=== PATIENT | female | born 1935 | race Caucasian/White ===

== ENCOUNTER 2018-02-01 11:04 | Inpatient (IN) | payer MEDICARE, MEDICAID ==
[2018-02-01] MEDS ORDERED: Ketorolac 30 MG/ML SDV IM PRN (11:18)
[2018-02-01 12:16] LABS: CHLORIDE,CL 92 mmol/L (98-115); SODIUM,NA 130 mmol/L (136-145)
[2018-02-01] MEDS: Lidocaine 5% 700 MG Patch TOP SCH (12:52)
[2018-02-01] MEDS: Acetaminophen 325 MG Tab PO PRN (15:25)
[2018-02-01] MEDS: Ondansetron 4 MG Tab.DIS PO PRN (18:20)
[2018-02-02] MEDS: Acetaminophen 325 MG Tab PO PRN ×2 (01:13→06:50)
[2018-02-02 07:50] LABS: CHLORIDE,CL 93 mmol/L (98-115); SODIUM,NA 131 mmol/L (136-145)
[2018-02-02] MEDS: Levothyroxine 50 MCG Tab PO SCH (07:51)
[2018-02-02] MEDS: Lidocaine 5% 700 MG Patch TOP SCH (08:04)
[2018-02-02] MEDS ORDERED: amLODIPine 2.5 MG Tab PO SCH (09:00)
[2018-02-02] MEDS ORDERED: Acetaminophen/HYDROcodone 325-5 MG Tab PO PRN (11:04)
[2018-02-02] MEDS ORDERED: Potassium Chloride 20 MEQ Tab.ER PO ONE (11:30)
[2018-02-02] MEDS ORDERED: EPINEPHrine 1:10,000 1 MG/10 ML Syringe IVPUSH PRN (12:19)
[2018-02-02] MEDS ORDERED: Nitroglycerin 0.4 MG Tab.SL SL PRN (12:19)
[2018-02-02] MEDS ORDERED: Atropine 0.1 MG/ML 10 ML Syringe IVPUSH PRN (12:19)
[2018-02-02] MEDS ORDERED: Lidocaine 2% 100 MG/5 ML Syringe IVPUSH PRN (12:19)
[2018-02-02] MEDS ORDERED: Ketorolac 30 MG/ML SDV IVPUSH PRN (17:18)
--- NOTE | 2018-02-02 19:02 | PCM.PN ---
- General Info Date of Service: 02/02/18 Subjective Update: Since admission, patient reports only concern is regarding R sided chest wall pain, which is improved with medications she has been given. Has been using incentive spirometer. Nausea and vomiting hav resolved. She has no other complaints. She specifically denies any headache, vision changes, hearing changes, difficulty swallowing, chest pain other than overlying right lateral chest wall, cough, shortness of breath, abdominal pain, abdominal pain, extremity pain, numbness, weakness, tingling, vertigo, lightheadedness, dysequilibrium. Her daughter at bedside would like to taker her home. The daughter states that she was "completely out of it" 2 nights ago when she fell. The patient is unable to provide history of time around event and doesn't know what happened to cause her to fall. No nursing concerns. Neurological checks have continued to be normal. - Patient Data Vitals - Most Recent: Last Vital Signs Temp 37.8 C 02/02/18 18:45 Pulse 78 02/02/18 18:45 Resp 16 02/02/18 18:45 BP 132/64 02/02/18 18:45 Pulse Ox 91 L 02/02/18 18:45 Weight - Most Recent: 61.915 kg I&O - Last 24 Hours: Intake & Output 02/02/18 02/02/18 02/02/18 06:59 14:59 22:59 Intake Total 0 1010 Output Total 300 Balance 0 710 Lab Results Last 24 Hours: Laboratory Results - last 24 hr 02/02/18 02/02/18 02/02/18 Range/Units 07:05 07:05 17:50 WBC 9.2 (5.0-10.0) 10^3/uL RBC 3.98 (3.80-5.50) 10^6/uL Hgb 11.8 L (12.0-16.0) g/dL Hct 36.6 L (37.0-47.0) % MCV 92.0 (82.0-92.0) fL MCH 29.7 (27.0-31.0) pg MCHC 32.3 (32.0-36.0) g/dL RDW 12.4 (11.5-14.5) % Plt Count 360 H (150-300) 10^3/uL MPV 6.9 L (7.4-10.4) fL Neut % (Auto) 60.3 (50.0-70.0) % Lymph % (Auto) 25.4 (20.0-40.0) % [place] % (Auto) 13.5 H (2.0-8.0) % Eos % (Auto) 0.4 L (1.0-3.0) % Baso % (Auto) 0.4 (0.0-1.0) % Neut # (Auto) 5.7 (2.5-7.0) 10^3/uL Lymph # (Auto) 2.3 (1.0-4.0) 10^3/uL Stephen[place] # (Auto) 1.2 H (0.1-0.8) 10^3/uL Eos # (Auto) 0.0 L (0.1-0.3) 10^3/uL Baso # (Auto) 0.0 (0.0-0.1) 10^3/uL Sodium 131 L (136-145) mmol/L Potassium 3.0 L (3.3-5.3) mmol/L Chloride 93 L (98-115) mmol/L Carbon Dioxide 28.4 (21.0-32.0) mmol/L BUN 15 (6-25) mg/dL Creatinine 0.65 (0.51-1.17) mg/dL Est Cr Clr Drug Dosing 50.96 mL/min Estimated GFR (MDRD) > 60 mL/min Glucose 104 (70-110) mg/dL Calcium 8.6 L (8.7-10.3) mg/dL C-Reactive Protein 1.0 H (0.0-0.9) mg/dL Specimen Type Urincc Urine Color Yellow (YELLOW) Urine Appearance Clear (CLEAR) Urine pH 6.0 (5.0-9.0) Ur Specific [place] 1.015 (1.005-1.030) Urine Protein Trace H (NEGATIVE) mg/dL Urine Glucose (UA) Negative (NEGATIVE) mg/dL Urine Ketones Negative (NEGATIVE) mg/dL Urine Occult Blood Small H (NEGATIVE) Urine Nitrite Negative (NEGATIVE) Urine Bilirubin Negative (NEGATIVE) Urine Urobilinogen 0.2 (0.2-1.0) E.U./dL Ur Leukocyte Esterase Large H (NEGATIVE) Urine RBC 5-10 H /HPF Urine WBC 75-100 H /HPF Ur Epithelial Cells Moderate H /LPF Urine Bacteria Moderate H (NONE TO FEW) /HPF Med Orders - Current: Current Medications Hydrocodone Bitart/Acetaminophen ([place] 325-5 Mg) 1 tab PO Q4H PRN PRN Reason: Pain Amlodipine Besylate (Norvasc) 10 mg PO DAILY [facility] Atropine Sulfate (Atropine 0.1 Mg/Ml) 0 mg IVPUSH ASDIRECTED PRN PRN Reason: Heart Epinephrine HCl (Epinephrine 1:10,000) 1 mg IVPUSH ASDIRECTED PRN PRN Reason: Heart Levothyroxine Sodium (Synthroid) 50 mcg PO ACBREAKFAST [facility] Last Admin: 02/02/18 07:51 Dose: 50 mcg Lidocaine (Lidoderm 5%) 700 mg TOP DAILY [facility] Last Admin: 02/02/18 08:04 Dose: 700 mg Lidocaine HCl (Xylocaine 2%) 0 mg IVPUSH ASDIRECTED PRN PRN Reason: Heart Miscellaneous Information (Remove Patch) 1 ea TRDERM BEDTIME [facility] Last Admin: 02/01/18 20:42 Dose: 1 ea Nitroglycerin (Nitrostat) 0.4 mg SL ASDIRECTED PRN PRN Reason: Heart Ondansetron HCl (Zofran Odt) 4 mg PO Q4H PRN PRN Reason: Nausea/Vomiting Last Admin: 02/01/18 18:20 Dose: 4 mg Discontinued Medications Acetaminophen (Tylenol) 650 mg PO Q4H PRN PRN Reason: analgesia/fever Last Admin: 02/02/18 06:50 Dose: 650 mg Hydrocodone Bitart/Acetaminophen ([place] 325-5 Mg) 1 tab PO Q6H PRN PRN Reason: Pain Last Admin: 02/02/18 12:16 Dose: 1 tab Amlodipine Besylate (Norvasc) 10 mg PO DAILY [facility] Last Admin: 02/02/18 08:04 Dose: 10 mg Ketorolac Tromethamine (Toradol) 15 mg IM Q6H PRN PRN Reason: Pain (moderate 4-6) Stop: 02/06/18 11:18 Last Admin: 02/01/18 12:52 Dose: 15 mg Ketorolac Tromethamine (Toradol) 15 mg IVPUSH Q6H PRN PRN Reason: Pain Stop: 02/07/18 17:19 Last Admin: 02/02/18 17:21 Dose: 15 mg Potassium Chloride (Klor-Con M20) 40 meq PO ONETIME ONE Stop: 02/02/18 11:31 Last Admin: 02/02/18 12:15 Dose: 40 meq - Exam Physical Findings Comments:: GENERAL: Elderly white female lying in hospital bed in no acute distress. Daughter at bedside. HEENT: Normocephalic, atraumatic without abrasions or ecchymosis. Conjunctiva clear, pupils equal round and reactive to light, extraocular movements intact. Nares patent without discharge. Hearing grossly intact. Mucous membranes moist , posterior pharynx unremarkable. NECK: Supple, no masses. CV: Regular rate and rhythm, no murmurs, rubs, or gallops. 2+ radial pulses. PULMONARY: Normal effort, clear to auscultation bilaterally, no wheezes, rales, or rhonchi. ABDOMEN: Positive bowel sounds, soft, nontender, nondistended. EXTREMITIES: No edema, cyanosis, or clubbing. MUSCULOSKELETAL/DERMATOLOGIC: R lateral-posterior chest wall with ecchymosis and tenderness to palpation overlying ribs without crepitus. NEUROLOGICAL: CN II-XII intact. Sensation to light touch intact in distal extremities. Strength 5/5 in distal extremities. Finger-nose and heel-burgos testing normal. DTRs 2+/4. No clonus. Babinski downgoing. Gait not tested. PSYCHIATRIC: Alert, answers questions appropriately but not overly descriptive ( daughter states she is at her baseline interacting as she always does), appropriate affect. - Problem List Review Problem List Initiated/Reviewed/Updated: Yes - My Orders Last 24 Hours: My Active Orders 02/02/18 07:30 Levothyroxine [Synthroid] 50 mcg PO ACBREAKFAST 02/02/18 11:09 Telemetry Monitoring [Cardiac Monitoring] [RC] 0300,0700,1100,1500,1900,2300 EKG 12 Lead [EK] Routine 02/02/18 12:19 Atropine [Atropine 0.1 MG/ML] 0 mg IVPUSH ASDIRECTED PRN EPINEPHrine [EPINEPHrine 1:10,000] 1 mg IVPUSH ASDIRECTED PRN Lidocaine 2% [Xylocaine 2%] 0 mg IVPUSH ASDIRECTED PRN Nitroglycerin [Nitrostat] 0.4 mg SL ASDIRECTED PRN 02/02/18 18:52 Acetaminophen/HYDROcodone [[place] 325-5 MG] 1 tab PO Q4H PRN 02/03/18 05:11 BASIC METABOLIC PANEL,BMP [CHEM] AM CBC WITH AUTO DIFF [HEME] AM TSH ULTRASENSITIVE [CHEM] AM 02/03/18 09:00 amLODIPine [Norvasc] 10 mg PO DAILY - Assessment Assessment:: 82yoF who sustained fall down 5 stairs on the night of 01/31/18 and was seen in the [facility] on 02/01/18 for persistent vomiting and rib pain. XR in clinic showed rib fractures. Patient and her daughter were initially reluctant to have further imaging or hospitalization, but eventually agreed and CT head performed showed 2.5cm L temporal hemorrhage with subdural and subarachnoid components and R frontoparietal cortical hemorrhage. Admitting provider Hasmukh Woods PA-C, and attending physician Dr. Nancy Wilkerson discussed these findings with the patient and her daughter at length and they agreed to stay in the hospital for monitoring of neurological and respiratory status, but declined consideration of transfer. # Fall # Intracranial hemorrhages # 5 right-sided rib fractures of 4 ribs # Hypokalemia # Hyponatremia # Hypochloremia # Thrombocytosis Dr. Nancy Wilkerson and myself on separate occasions at bedside this morning discussed the head imaging findings again and further consideration of treatment at outside facility and they declined. I personally stressed the potential progression and severity of the intracranial hemorrhage and though they would prefer going home at this point, they agree to ongoing monitoring at this facility. Fall was thought to be mechanical, but this is uncertain so will proceed with cardiology evaluation to assess for possible underlying etiology. Given hemorrhages and multiple rib fractures, it is prudent to continue close monitoring of neurological and respiratory status. - Continue fall precautions and neurological assessments - Repeat CT head if any change in neurological status - MRI brain scheduled for 02/08/18, when MRI next available locally - EKG - Telemetry for the next 24 hours to assess for arrhythmia - [place] for rib pain; Ketorolac previously ordered for pain control has been discontinued in setting of hemorrhages - Continue incentive spirometry - Potassium replacement - IVF with NS at 75cc/hr Chronic conditions: # Hypertension: Stable. Continue amlodipine. # Hypothyroidism: Recent TSH wnl. Continue levothyroxine. # Osteopenia: Last DEXA 2012; recent repeat ordered. On Fosamax, Ca/D as outpatient. # Insomnia: On Ambien as outpatient. Holding while inpatient given acute problems. Hospitalization details: # FEN: IVF as above with NS at 75cc/hr. Electrolytes as above; recheck tomorrow. Regular diet. # PPX: SCDs for DVT ppx; no pharmacologic ppx in the setting of hemorrhages. # Code status: DO NOT INTUBATE. # Emergency contact: Daughter, who was updated at bedside on rounds. # Disposition: Continue on inpatient status given necessity of close neurological and respiratory monitoring.
[2018-02-02] MEDS ORDERED: Sodium Chloride 0.9% 1,000 ML IV SCH (19:30)
[2018-02-03] MEDS: Acetaminophen/HYDROcodone 325-5 MG Tab PO PRN ×4 (07:01→23:49)
[2018-02-03] MEDS: Levothyroxine 50 MCG Tab PO SCH (07:50)
[2018-02-03 08:33] LABS: CHLORIDE,CL 94 mmol/L (98-115); SODIUM,NA 131 mmol/L (136-145)
[2018-02-03] MEDS: Ondansetron 4 MG Tab.DIS PO PRN (09:26)
[2018-02-03] MEDS: amLODIPine 5 MG Tab PO SCH (09:28)
[2018-02-03] MEDS: Lidocaine 5% 700 MG Patch TOP SCH (09:28)
[2018-02-03] MEDS: cefTRIAXone 1 GM Vial IVPUSH SCH (10:00)
[2018-02-03] MEDS ORDERED: Aluminum Hydroxide/Magnesium Hydroxide Susp 30 ML Cup PO PRN (20:49)
[2018-02-04] MEDS: Acetaminophen/HYDROcodone 325-5 MG Tab PO PRN ×2 (07:05→12:57)
[2018-02-04] MEDS: Levothyroxine 50 MCG Tab PO SCH (07:41)
[2018-02-04] MEDS: amLODIPine 5 MG Tab PO SCH (08:53)
[2018-02-04] MEDS: cefTRIAXone 1 GM Vial IVPUSH SCH (09:00)
[2018-02-04] MEDS: Lidocaine 5% 700 MG Patch TOP SCH (09:01)
[2018-02-04] MEDS ORDERED: Cephalexin 250 MG Cap PO ONE (12:00)
[2018-02-04] MEDS ORDERED: Acetaminophen/HYDROcodone 325-5 MG Tab PO ONE (12:58)
[2018-02-04] MEDS ORDERED: Lidocaine 5% 700 MG Patch TOP ONE (12:58)
--- NOTE | 2018-02-05 08:26 | PN ---
02/03/2018PATIENT NAME: KAY CASTILLO SUBJECTIVE: This is an 82-year-old female patient who was admitted due to a fall down 5 stairs on 01/31/2018. She was initially seen at the clinic post fall due to persistent vomiting and rib discomfort. An x-ray had been completed, which did indicate rib fractures. The patient was admitted for hospitalization. A CT scan was completed noting a 2.5 cm left temporal hemorrhage with subdural and subarachnoid components and a right frontoparietal cortical hemorrhage. The patient today states that she is feeling improved. She notes that she does have a mild headache. She reports no nausea presently. She has had breakfast and has taken fluids well without any recurrence of her symptoms. Her neuro exams have been completed and they have been normal. She does have a urinary tract infection, which is confirmed by UA. She complains of urinary urgency and daughter states the urine is quite odorous. She has been placed on telemetry. This has not indicated any abnormalities. She has an MRI scheduled for 02/08/2018. Physicians, Dr. Kylie Wilkerson and Dr. Baird, have both discussed the findings of the CT scan and have encouraged consideration for outside treatment. Family and the patient have declined. They wish to receive care at the [facility] and to take the patient home as soon as possible. It is noted that the fall was thought to be a mechanical fall. However, this is uncertain. The patient's activity level has been minimal since her admission. REVIEW OF SYSTEMS: CONSTITUTIONAL: Unremarkable. HEENT: Mild headache. She has had no earache. The patient has had a nosebleed , which is thought to be a result of picking her nose. She has no complaints of sore throat. RESPIRATORY: She has no cough. No congestion. CARDIOVASCULAR: No complaints of chest pain or palpitations. GASTROINTESTINAL: Her appetite and fluid intake are improving. She has had no nausea or vomiting. EXTREMITIES: No complaints of muscle or joint pain. MUSCULOSKELETAL: She complains of right rib discomfort with increased pain during deep breathing. She states her pain medications have been quite beneficial in improving her pain. PHYSICAL EXAMINATION: GENERAL: This is an 82-year-old female, siting up in her chair. Her daughter is at her bedside. HEENT: Head is normocephalic. Conjunctivae are clear. Pupils equal, round, reactive to light and accommodation. EOMs intact. Nares are patent. There is no bleeding at present. Throat is unremarkable. NECK: Supple without rigidity. RESPIRATORY: Lungs are clear to auscultation. CARDIOVASCULAR: Heart rate and rhythm are regular. S1, S2. ABDOMEN: Soft, nontender. Bowel sounds present x4 quadrants. EXTREMITIES: No lower extremity edema. Nontender to touch. MUSCULOSKELETAL: Right-sided rib discomfort. Tender to palpation. ASSESSMENT AND PLAN: Fall in the home setting with intracranial hemorrhages, 5 right-sided rib fractures, hypokalemia, hyponatremia, urinary tract infection. Plan is to continue [place] for pain. She will continue to use her incentive spirometry. She has had IV fluids, which are being completed today. Potassium supplement will continue. EKG has been obtained. We will repeat a CT scan if the patient reveals any changes. She does have chronic conditions of hypertension, which is treated with amlodipine and stable; hypothyroidism, being managed with levothyroxine; osteopenia, the patient is on calcium with vitamin D as an outpatient and also on Fosamax. Her insomnia is managed with Ambien. This has been placed on hold presently due to the acuity of her diagnosis. Her IV fluids will be continued at 75 mL. She is a full code, do not intubate. The patient again was informed of the severity of her intracranial hemorrhage in the presence of her daughter. At this point, they again request to only stay at [facility] declining any further treatment. /[id number]/MODL MTDD
== END 2018-02-04 13:45 | disposition home or self-care (01) | DRG 86 ==
LOC: KA.MS 11:19 → OBSVTOIN 11:19 → UNDODISIN 02-04 13:45
PROVIDERS: ADMIT Physician Assistant; ATTEND Family Medicine
DX: S06.0X1A Concussion with loss of consciousness of 30 minutes or less, initial encounter (principal); S06.5X1A Traumatic subdural hemorrhage with loss of consciousness of 30 minutes or less, initial encounter; S22.41XA Multiple fractures of ribs, right side, initial encounter for closed fracture; G44.319 Acute post-traumatic headache, not intractable; E87.1 Hypo-osmolality and hyponatremia; R11.10 Vomiting, unspecified; N39.0 Urinary tract infection, site not specified; W10.9XXA Fall (on) (from) unspecified stairs and steps, initial encounter; Y92.019 Unspecified place in single-family (private) house as the place of occurrence of the external cause; E87.6 Hypokalemia; E87.8 Other disorders of electrolyte and fluid balance, not elsewhere classified; D47.3 Essential (hemorrhagic) thrombocythemia; I10 Essential (primary) hypertension; E03.9 Hypothyroidism, unspecified; M85.80 Other specified disorders of bone density and structure, unspecified site; G47.00 Insomnia, unspecified; Z79.899 Other long term (current) drug therapy
CPT/HCPCS: 36415; 70450; 80048; 80053; 81001; 84443; 85025; 85610; 85730; 86140; 87086; 93005; 96372; A9270-GY; G0378; G0379; J0696; J1885; J7030